=== PATIENT | male | born 1995 | race Two or more races ===

== ENCOUNTER 2024-10-26 10:00 | Day surgery (SDC) | payer BC, SELFPAY ==
[2024-10-24 12:05] VITALS: BMI 31.8
[2024-10-24 13:29] LABS: Partial Thromboplastin Time 25.5 Seconds (22.0-36.0); Prothrombin Time 10.9 Seconds (9.0-12.2)
[2024-10-24 13:39] LABS: Alanine Aminotransferase 35 U/L (10-49); Albumin, Serum 4.6 gm/dL (3.5-5.0); Albumin/Globulin Ratio 1.5 (1.2-2.2); Alkaline Phosphatase 70 U/L (46-116); Anion Gap 7 (7-16); Aspartate Amino Transferase 24 U/L (0-34); BUN/Creatinine Ratio 12 Ratio (12-20); Bilirubin,Total 0.8 mg/dL (0.3-1.2); Blood Urea Nitrogen 11 mg/dL (9-23); Carbon Dioxide 30.4 mMol/L (20.0-31.0); Chloride 103 mMol/L (98-107); Creatinine (Component) 0.9 mg/dL (0.6-1.3); Estimated Creatinine Clearance 140.9 mL/min (>60); Globulin 3.1 gm/dL (2.3-3.5); Glucose 103 mg/dL (74-106); Osmolality,Calculated 278 (275-295); Potassium 3.7 mMol/L (3.4-5.1); Sodium 140 mMol/L (136-145); Total Protein 7.7 gm/dL (5.7-8.2); eGFR > 60 See Note
[2024-10-24 13:58] LABS: Basophils % (Auto) 0 % (0-2.5); Eosinophils # (Auto) 0.1 Thou/mm3 (0.0-0.5); Eosinophils % (Auto) 2 % (0-10); Hematocrit 43.6 % (41.0-53.0); Hemoglobin 15.1 g/dL (13.5-16.0); Immature Granulocytes % (Auto) 0 % (0-0); Immature Granulocytes Auto 0.02 Thou/mm3 (0.00-0.00); Lymphocytes # (Auto) 2.7 Thou/mm3 (1.0-4.8); Lymphocytes % (Auto) 37 % (10-50); Mean Corpuscular HGB Conc 34.6 g/dl (31.0-37.0); Mean Corpuscular Hemoglobin 30.3 pg (25.0-35.0); Mean Corpuscular Volume 87 fL (80-100); Monocytes # (Auto) 0.4 Thou/mm3 (0.0-0.8); Monocytes % (Auto) 6 % (0-12); Neutrophils % (Auto) 55 % (37-80); Nucleated Red Blood Cell % 0 /100 WBC (0); Platelet Count 336 Thou/mm3 (140-440); RDW Standard Deviation 38.3 fL (35.1-43.9); Red Blood Count 4.99 Miln/mm3 (4.50-5.90); White Blood Count 7.2 Thou/mm3 (3.8-10.6)
[2024-10-26] VITALS (8 sets, daily range): BP systolic 103–136; BP diastolic 59–88; PULSE 71–82; RESP 13–20; TEMP 36.9–37.4; O2SAT 97–100; BMI 31.0
--- NOTE | 2024-10-26 10:30 | CHAP ---
Patient expressed gratitude for prayer before their procedure.
--- NOTE | 2024-10-26 13:46 | PD.SUROPNT ---
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 Procedure Description After the patient was brought to the operating room endotracheal anesthesia was given. Then he was kept in prone position and jackknife bending of the table. Buttocks were taped apart. Patient was given 2 g of Ancef for prophylaxis. Then Betadine solution was used to prep the area. Then I used a probe on the fistula which is located at least 5 to 6 cm away from the anus. I used a probe and it went through the tract which was located in the superficial plane but could not see the opening into the anal canal. I pushed it through into the distal anal canal below the dentate line. Then I excised the entire fistulous tract using a 15 blade knife. I injected this area with half percent Marcaine. Then I placed few sutures on the mucosal side of the fistulectomy using 3-0 chromic. The rest of the wound which is about 6 cm was packed with Surgicel and 4 x 4 gauze and dressing was applied. Patient tolerated procedure well. Pathology / specimen Other (The fistulous tract) Estimated Blood Loss 10 Surgeon Yaz Leal MD Surgical Staff Operation Date: 10/26/24 12:15 Case Staff CERTIFIED ALCOHOL DRUG COUNSELOR: Lavelle Zuniga RN First Assistant: Gloria Perez
--- NOTE | 2024-10-26 13:52 | SUR.PHASEI ---
1352 Patient arrived to recovery resting comfortably in [facility], oral airway in place, oxygen therapy initiated oxy mask 10L, breathing unlabored, vital signs stable, dressing intact to buttock area; gauze, medipore tape, no bleeding noted, lung sounds clear upon auscultation, bilateral radial pulses present when palpated, report received from Mat FARAH and Dr. Zuniga
--- NOTE | 2024-10-26 15:10 | SUR.PHASEII ---
1510 Patient meets discharge criteria from recovery, awake and alert, breathing unlabored, vital signs stable, denies pain states, It just feels sore , dressing intact; no bleeding noted, patient ate two jello's and drinking water; denies nausea, patient able to dress himself into his clothing, discharge instructions given to patient and patients mother, mother signed discharge criteria. Patient given all his belongings prior to discharge, transported via wheelchair and left in a private vehicle.
== END 2024-10-26 15:10 | disposition home or self-care (01) ==
PROVIDERS: PCP Family Medicine; Referring Provider Surgery; Visit Provider Surgery
PROC: (CPT 46270; principal; 2024-10-26 12:00)
DX: K60.30 Anal fistula, unspecified (principal)
CPT/HCPCS: 46270; 36415; 80053; 85025; 85610; 85730; A4217; A4649; C1876; J1100; J2250; J2405; J2704; J3010; J3490